=== PATIENT | male | born 1990 | race Caucasian/White ===

== ENCOUNTER 2017-01-14 04:43 | Observation (INO) | payer MEDICARE, OTHER ==
[~2017-01-14] VITALS: Ht 185.4 cm; Wt 64.0 kg
[2017-01-14] VITALS (7 sets, daily range): BP systolic 97–115; BP diastolic 51–62; PULSE 59–79; TEMP 98.1–98.4
[2017-01-14 04:51] LABS: ADD PATHOLOGY DIFF REVIEW NO; HEMATOCRIT 41.7 % (42.0-52.0); HEMOGLOBIN 14.9 g/dl (13.5-18.0); MEAN CELL VOLUME 89 fl (80.0-100.0); MEAN CORPUSCULAR HEMOGLOBIN 32 pg (27.0-31.0); MEAN CORPUSCULAR HGB CONC 36 g/dl (33.0-37.0); PLATELET COUNT 177 K/mm3 (130-400); RED BLOOD COUNT 4.69 M/mm3 (4.20-5.60); REDCELL DISTRIBUTION WIDTH-CV 12.6 % (11.5-14.5); WHITE BLOOD COUNT 24.5 K/mm3 (4.8-10.8)
[2017-01-14 04:59] LABS: BAND 8 % (0-10); NEUTROPHILS 78 % (42.0-75.2); PLATELET ESTIMATE NORMAL (NORMAL); TOTAL CELLS COUNTED 100
[2017-01-14 05:00] LABS: ADJUSTED CALCIUM 9.1 mg/dL (8.4-10.2); ALBUMIN 4.5 gm/dL (3.5-5.0); CALCIUM 9.5 mg/dL (8.4-10.2); CREATININE, serum 1.02 mg/dL (0.66-1.25); POTASSIUM 3.5 mmol/L (3.4-5.0); TOTAL PROTEIN 7.4 gm/dL (6.4-8.2)
[2017-01-14 06:25] LABS: PH 6 (5-8); SQUAMOUS EPITHELIAL 0-2 /hpf; URINE APPEARANCE Clear; URINE BACTERIA None Seen /hpf; URINE BILIRUBIN Negative (NEGATIVE); URINE BLOOD 3+ (NEGATIVE); URINE COLOR Yellow; URINE GLUCOSE Negative (NEGATIVE); URINE KETONE Trace (NEGATIVE); URINE UROBILINOGEN Negative (NEGATIVE)
[2017-01-14 15:22] LABS: HEMATOCRIT 33.8 % (42.0-52.0); HEMOGLOBIN 12.1 g/dl (13.5-18.0)
[2017-01-14 15:31] LABS: CALCIUM 8.9 mg/dL (8.4-10.2); CREATININE, serum 0.83 mg/dL (0.66-1.25); POTASSIUM 3.9 mmol/L (3.4-5.0)
[2017-01-15 05:03] VITALS: BP 98/40; PULSE 66; TEMP 97.9
[2017-01-15 09:25] VITALS: BP 112/40; PULSE 81; TEMP 97.3
[2017-01-15 09:56] LABS: BASO % 0.2 % (0.0-2.0); EOS # 0.1 (0.0-0.7); GRAN # 5.6 (1.4-6.5); GRAN % 64.3 % (42.2-75.2); LYMPH # 1.9 (1.2-3.4); LYMPH % 22.2 % (20.0-51.0); MEAN CELL VOLUME 91 fl (80.0-100.0); MEAN CORPUSCULAR HGB CONC 35 g/dl (33.0-37.0); MEAN PLATELET VOLUME 10.7 fl (7.4-10.4); MONO % 11.8 % (1.7-9.3); PLATELET COUNT 129 K/mm3 (130-400); RED BLOOD COUNT 3.77 M/mm3 (4.20-5.60); REDCELL DISTRIBUTION WIDTH-CV 12.7 % (11.5-14.5); WHITE BLOOD COUNT 8.6 K/mm3 (4.8-10.8)
[2017-01-15 10:00] LABS: HEMATOCRIT 34.4 % (42.0-52.0); HEMOGLOBIN 11.9 g/dl (13.5-18.0); MEAN CORPUSCULAR HEMOGLOBIN 32 pg (27.0-31.0)
[2017-01-15 10:11] LABS: ADJUSTED CALCIUM 9.4 mg/dL (8.4-10.2); ALBUMIN 3.5 gm/dL (3.5-5.0); BILIRUBIN,TOTAL 1.8 mg/dL (0.0-1.0); CREATININE, serum 0.86 mg/dL (0.66-1.25); POTASSIUM 3.9 mmol/L (3.4-5.0)
== END 2017-01-15 14:00 | disposition home or self-care (01) ==
LOC: COL.ER 04:43 → SURG 06:13
PROVIDERS: Emergency Medicine; Surgery
DX: S02.40DA Maxillary fracture, left side, initial encounter for closed fracture (principal); S71.112A Laceration without foreign body, left thigh, initial encounter; S71.111A Laceration without foreign body, right thigh, initial encounter; Y04.8XXA Assault by other bodily force, initial encounter; H11.31 Conjunctival hemorrhage, right eye
CPT/HCPCS: G0378; J0690; J1170; J2405; J7030; Q9967